=== PATIENT | male | born 1975 | race Caucasian/White ===

== ENCOUNTER 2017-05-30 18:09 | Emergency (ER) | payer BC, OTHER ==
[2017-05-30 18:15] VITALS: BP 131/74; RESP 16; TEMP 98.1; O2SAT 95
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
[2017-05-30 19:03] VITALS: PULSE 68
== END 2017-05-30 19:06 | disposition home or self-care (01) ==
PROC: 0HQMXZZ Repair Right Foot Skin, External Approach (ICD-10-PCS; principal; 2017-05-30)
DX: S91.311A Laceration without foreign body, right foot, initial encounter (principal); V28.0XXA Motorcycle driver injured in noncollision transport accident in nontraffic accident, initial encounter; Y92.410 Unspecified street and highway as the place of occurrence of the external cause; Y99.8 Other external cause status; Y93.89 Activity, other specified